=== PATIENT | female | born 1930 | race Caucasian/White ===

== ENCOUNTER 2016-12-16 11:03 | Emergency (ER) | payer MEDICARE ==
[~2016-12-16] VITALS: Ht 167.6 cm; Wt 49.0 kg
--- NOTE | 2016-12-16 11:05 | NUR ---
Judah luna in [facility] - 12/16/16 at 1120 by NILS Pt states he changed his mind and does not want to be seen any longer.
--- NOTE | 2016-12-16 11:30 | NUR ---
PT IS IN ROOM #2A. DR COPE EVALUATED THE PT.
[2016-12-16] MEDS ORDERED: LET TOPICAL SOLUTION 8 ML UDC TP ONE (11:45)
[2016-12-16] MEDS ORDERED: LET TOPICAL SOLUTION 8 ML UDC ONE (11:58)
--- NOTE | 2016-12-16 12:42 | NUR ---
I&D PROCEDURE ON PT'S RIGHT HAND WAS DONE BY DR COPE. PT TOLERATED TO PROCEDURE WITHOUT COMPLICATIONS. GAUZE DRESSING WAS APPLIED. NO BLEEDING. PT WAS D/C TO HOME AFTER DR COPE RE-EVALUATION. D/C INSTRUCTIONS GIVEN TO THE PT.
[2016-12-16 12:45] VITALS: BP 139/81
[2016-12-16] MEDS ORDERED: LIDOCAINE HCL 1% 20 ML VIAL IJ ONE (12:45)
== END 2016-12-16 13:01 | disposition home or self-care (01) ==
LOC: ER 11:06
DX: L08.9 Local infection of the skin and subcutaneous tissue, unspecified (principal); M79.641 Pain in right hand; I10 Essential (primary) hypertension; Z88.2 Allergy status to sulfonamides
CPT/HCPCS: 10060; 73130; 99284; A4663; J3490